=== PATIENT | male | born 1930 | race Caucasian/White ===

== ENCOUNTER 2018-01-13 17:59 | Emergency (ER) | payer OTHER, MEDICARE, BC ==
[~2018-01-13] VITALS: Ht 180.3 cm; Wt 75.3 kg
[~2018-01-13 17:59] MED LIST: AMIO200T PO; ARFO15VI IH; ASPI-655 PO; ATOR20TA PO; BENZ100C PO; BUDE10.2 IH; CARV6.252 PO; CEPH-350 PO; ENOX40DI SQ; FAMO-75 PO; OLME40TA12 PO; POTA10CA PO; PREG50CA PO; RIVA10TA PO
[2018-01-13 18:09] VITALS: BP 133/98
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
[2018-01-13 18:50] LABS: BASOPHIL % 0.2 % (0.0-0.2); EOSINOPHIL # 0.1 10^3/uL (0.0-0.2); EOSINOPHIL % 0.7 % (0.0-5.0); HEMOGLOBIN 12.1 g/dL (13.9-16.3); LYMPHOCYTES # 1.4 10^3/uL (1.0-4.8); LYMPHOCYTES % 11.9 % (24.0-44.0); MEAN CELL HGB 30.7 pg (26-34); MEAN CELL HGB CONCENTRATION 32.6 g/dL (33-37); MEAN CORP VOLUME 94.2 fL (78-100); MEAN PLATELET VOLUME 10.4 fL (7.8-11.0); MONOCYTES # 0.9 10^3/uL (0.3-0.8); MONOCYTES % 7.6 % (5.0-12.0); NEUTROPHIL # 9.3 10^3/uL (1.8-7.7); NEUTROPHILS % 78.8 % (41.0-85.0); RED CELL DISTRIBUTION WIDTH 13.1 % (11.5-14.5); WHITE BLOOD CELL 11.8 10^3/uL (4.5-11.0)
[2018-01-13] MEDS ORDERED: ULTRAM ONE (18:55)
[2018-01-13] MEDS ORDERED: ULTRAM PO STA (18:56)
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
[2018-01-13 19:08] LABS: CALCIUM 9.2 mg/dL (8.4-10.5); CARBON DIOXIDE 26.2 mmol/L (20.0-32)
[2018-01-13 19:10] VITALS: BP 155/70
--- NOTE | 2018-01-13 19:10 | PCM.EKG ---
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: RONNIE : 1930 Requested By: RADHA ARCE Order Number: [id number] Reading MD: Radha ARCE Measurements Intervals [place] Rate: 72 P: 96 CO: 236 QRS: 92 QRSD: 154 T: -23 QT: 460 QTc: 503 Interpretive Statements Suspect arm lead reversal, interpretation assumes no reversal Sinus rhythm with 1st degree AV block with premature atrial complexes Right bundle branch block T wave abnormality, consider inferolateral ischemia Abnormal ECG Compared to ECG 05/28/2017 09:26:47 Atrial premature complex(es) now present First degree AV block now present T-wave abnormality now present Possible ischemia now present Left ventricular hypertrophy no longer present Early repolarization no longer present Electronically Signed On 01-14-2018 4:56:14 CDT by Radha ARCE Please click the below link to view image of tracing.
--- NOTE | 2018-01-13 19:11 | NUR ---
HOME MEDICATIONS PATIENT STATES HE TAKES 3 MEDS ONLY, UPDATED 2 OF THEM. PATIENT UNSURE OF NAME OF OTHER HEART MEDICATION
--- NOTE | 2018-01-13 19:32 | NUR ---
TO CT PATIENT TO CT VIA STRETCHER W/ MARCELO MALIK
[2018-01-13 20:00] VITALS: BP 149/68
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
[2018-01-13] MEDS ORDERED: MORPHINE SULFATE IV STA (20:37)
[2018-01-13] MEDS ORDERED: MORPHINE SULFATE ONE (20:37)
[2018-01-13 21:00] VITALS: BP 132/55
--- NOTE | 2018-01-13 21:04 | NUR ---
REPORT TO [facility] REPORT GIVEN TO AHMET ROBERTSON
--- NOTE | 2018-01-13 21:14 | NUR ---
REPORT TO [facility] REPORT GIVEN TO FELIX MO
== END 2018-01-13 21:00 | disposition short-term general hospital (02) ==
LOC: EDBD 17:59 → ER 17:59
DX: S22.43XA Multiple fractures of ribs, bilateral, initial encounter for closed fracture (principal); S82.091A Other fracture of right patella, initial encounter for closed fracture; I10 Essential (primary) hypertension; Z88.5 Allergy status to narcotic agent; Z79.82 Long term (current) use of aspirin; Z95.818 Presence of other cardiac implants and grafts; Z90.49 Acquired absence of other specified parts of digestive tract; Z79.899 Other long term (current) drug therapy; V49.49XA Driver injured in collision with other motor vehicles in traffic accident, initial encounter; Y93.89 Activity, other specified; Y92.89 Other specified places as the place of occurrence of the external cause; Y99.8 Other external cause status
CPT/HCPCS: 36415; 71260; 73700; 80053; 82550; 82553; 84484; 85025; 85610; 85730; 93005; 96374; 99285; J2270; Q9965; 73701

== ENCOUNTER 2018-02-05 18:41 | Emergency (ER) | payer MEDICARE, BC ==
[~2018-02-05] VITALS: Ht 180.3 cm; Wt 75.3 kg
[2018-02-05 19:04] VITALS: BP 155/85
--- NOTE | 2018-02-05 19:22 | NUR ---
ULTRASOUND ATTEMPT TO NOTIFY YEVGENIY U/S TECH. NO ANSWER-LEFT MESSAGE.
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
[2018-02-05 19:28] LABS: BASOPHIL % 0.8 % (0.0-0.2); EOSINOPHIL # 0.1 10^3/uL (0.0-0.2); EOSINOPHIL % 1.8 % (0.0-5.0); HEMOGLOBIN 10.1 g/dL (13.9-16.3); LYMPHOCYTES # 0.9 10^3/uL (1.0-4.8); LYMPHOCYTES % 18.7 % (24.0-44.0); MEAN CELL HGB 30.1 pg (26-34); MEAN CELL HGB CONCENTRATION 31.8 g/dL (33-37); MEAN CORP VOLUME 94.9 fL (78-100); MEAN PLATELET VOLUME 8.8 fL (7.8-11.0); MONOCYTES # 0.7 10^3/uL (0.3-0.8); MONOCYTES % 13.1 % (5.0-12.0); NEUTROPHIL # 3.3 10^3/uL (1.8-7.7); NEUTROPHILS % 65.4 % (41.0-85.0); RED CELL DISTRIBUTION WIDTH 13.8 % (11.5-14.5)
[2018-02-05] MEDS ORDERED: HYDR-3101 PO (19:33)
[2018-02-05] MEDS ORDERED: AMIO200T2 PO (19:33)
[2018-02-05] MEDS ORDERED: CIPR500T86 PO (19:33)
[2018-02-05] MEDS ORDERED: METH750T94 PO (19:33)
[2018-02-05] MEDS ORDERED: LOSA50TA6 PO (19:33)
[2018-02-05] MEDS ORDERED: CALC-599 PO (19:36)
[2018-02-05 19:45] LABS: CARBON DIOXIDE 27.7 mmol/L (20.0-32)
--- NOTE | 2018-02-05 19:45 | NUR ---
GOWN PT PLACED IN GOWN, WARM BLANKETS PROVIDED. DENIES NEEDS.
[2018-02-05 19:46] LABS: CALCIUM 8.8 mg/dL (8.4-10.5)
--- NOTE | 2018-02-05 19:47 | NUR ---
ULTRASOUND NOTIFIED YEVGENIY U/S LARISA OF ORDERS. AWAIT ARRIVAL
[2018-02-05 19:54] VITALS: BP 157/95
--- NOTE | 2018-02-05 20:06 | NUR ---
ULTRASOUND YEVGENIY AT BEDSIDE AT THIS TIME.
--- NOTE | 2018-02-05 20:54 | DIREP ---
PROCEDURE:US DUPLEX EXTREM VEINS UNILATER/LIMITED-RT COMPARISON:None. INDICATIONS:Swelling TECHNIQUE:The right lower extremity was evaluated utilizing chowdary scale images with segmental compression, color Doppler, and spectral Doppler with respiratory variation and augmentation. FINDINGS: Common femoral vein:Patent Superficial femoral vein:Patent Popliteal vein:Patent Posterior tibial vein:Patent Anterior tibial vein:Patent Greater saphenous vein:Patent Waveforms are within normal limits. CONCLUSION: 1. No DVT identified in the right lower extremity. Dictated by: Soraida Noble MD on 02/05/2018 at 08:52 PM
--- NOTE | 2018-02-05 21:05 | NUR ---
Mery Franco Mba on phone with Dr. Ordonez
[2018-02-05 21:15] VITALS: BP 141/84
[2018-02-05 21:33] VITALS: BP 141/84
== END 2018-02-05 21:21 | disposition home or self-care (01) ==
LOC: ER 18:41
DX: M25.461 Effusion, right knee (principal); R60.9 Edema, unspecified; Z88.5 Allergy status to narcotic agent; Z79.82 Long term (current) use of aspirin; Z79.899 Other long term (current) drug therapy; Z85.9 Personal history of malignant neoplasm, unspecified; Z95.0 Presence of cardiac pacemaker; Z90.49 Acquired absence of other specified parts of digestive tract
CPT/HCPCS: 36415; 80053; 85025; 85379; 85610; 85730; 99285; 93971

== ENCOUNTER → 2018-03-25 | Outpatient (CLI) | payer MEDICARE, BC ==
[~2018-03-25] MED LIST changes: +AMIO100T4 PO; +AMIO200T2 PO; +CALC-599 PO; +CIPR500T86 PO; +HYDR-3101 PO; +LOSA50TA6 PO; +MAGN296S9 PO; +METH750T94 PO; +METO-237 PO; +TRAM50TA PO
[2018-03-25 16:00] LABS: HEMOGLOBIN 12.8 g/dL (13.9-16.3); MEAN CELL HGB 29.9 pg (26-34); MEAN CELL HGB CONCENTRATION 31.8 g/dL (33-37); MEAN CORP VOLUME 93.9 fL (78-100); MEAN PLATELET VOLUME 10.1 fL (7.8-11.0); RED CELL DISTRIBUTION WIDTH 13.5 % (11.5-14.5); WHITE BLOOD CELL 7.3 10^3/uL (4.5-11.0)
[2018-03-25 16:07] LABS: BILIRUBIN,URINE NEGATIVE (NEGATIVE); UROBILINOGEN,URINE NORMAL (NEGATIVE)
[2018-03-25 16:38] LABS: CALCIUM 9.1 mg/dL (8.4-10.5); CARBON DIOXIDE 27.3 mmol/L (20.0-32)
[2018-03-25 16:52] LABS: APPEARANCE,URINE SLIGHTLY CLOUDY (CLEAR); UA COLOR YELLOW (YELLOW)
== END | disposition home or self-care (01) ==
LOC: LAB 15:34
PROVIDERS: ATTEND Specialist
DX: N39.0 Urinary tract infection, site not specified (principal); I11.0 Hypertensive heart disease with heart failure; I50.9 Heart failure, unspecified; Z90.49 Acquired absence of other specified parts of digestive tract
CPT/HCPCS: 36415; 80053; 81000; 83880; 85027; 87077; 87086; 87186

== ENCOUNTER → 2018-09-06 | Outpatient (CLI) | payer MEDICARE, BC ==
[~2018-09-06] MED LIST changes: -AMIO200T2 PO; +AMIO200T4 PO; +LOSA50TA14 PO; -LOSA50TA6 PO
[2018-09-06 15:46] LABS: HEMOGLOBIN 12.9 g/dL (13.9-16.3); MEAN CELL HGB 30.4 pg (26-34); MEAN CELL HGB CONCENTRATION 32.4 g/dL (33-37); MEAN CORP VOLUME 93.9 fL (78-100); MEAN PLATELET VOLUME 9.2 fL (7.8-11.0)
[2018-09-06 15:47] LABS: BILIRUBIN,URINE NEGATIVE (NEGATIVE); UROBILINOGEN,URINE NORMAL (NEGATIVE)
[2018-09-06 15:59] LABS: APPEARANCE,URINE CLOUDY (CLEAR); UA COLOR YELLOW (YELLOW)
[2018-09-06 16:20] LABS: ALANINE AMINOTRANSFERASE(ML) 16 U/L (12-78); ALKALINE PHOSPHATASE 94 U/L (50-136); ASPARTATE AMINO TRANSFERASE 17 U/L (0-35); CALCIUM 9.2 mg/dL (8.4-10.5); CARBON DIOXIDE 24.9 mmol/L (20.0-32); GLUCOSE 95 mg/dL (70-110)
== END | disposition home or self-care (01) ==
LOC: LAB 15:16
PROVIDERS: ATTEND Specialist
DX: I11.0 Hypertensive heart disease with heart failure (principal); I50.32 Chronic diastolic (congestive) heart failure; I48.0 Paroxysmal atrial fibrillation; R31.9 Hematuria, unspecified
CPT/HCPCS: 36415; 80053; 81000; 84153; 85027; 85610; 87077; 87086; 87186